=== PATIENT | male | born 1980 | race Asian ===

== ENCOUNTER 2018-10-09 12:39 | Emergency (ER) | payer SELFPAY ==
[~2018-10-09] VITALS: Ht 175.3 cm; Wt 90.7 kg
[2018-10-09 12:44] VITALS: Ht 175.3 cm; Wt 90.7 kg
--- NOTE | 2018-10-09 12:51 | NUR ---
AMBULATORY TO BED 9. PT C/O R ARM PAIN X3 DAYS.
[2018-10-09 13:22] LABS: BASOPHIL % 0.7 % (0-2); PLATELET COUNT 256 x10^3mcL (130-400); RED CELL DISTRIBUTION WIDTH 12.7 % (11.5-14.5)
[2018-10-09 13:35] LABS: CALCIUM 9.3 mg/dL (8.5-10.1); CHLORIDE SERUM 108 mmol/L (98-107); CREATININE SERUM 0.7 mg/dL (0.7-1.3); GFR1 > 60 mL/min; GLUCOSE SERUM 137 mg/dL (74-106); POTASSIUM SERUM 3.8 mmol/L (3.5-5.1); SODIUM SERUM 142 mmol/L (136-145)
[2018-10-09 13:40] LABS: ALBUMIN 4.1 g/dL (3.4-5.0); ALKALINE PHOSPHATASE 51 U/L (46-116); ALT/SGPT 57 U/L (16-63); AST/SGOT 19 U/L (15-37); BILIRUBIN TOTAL 0.8 mg/dL (0.20-1.00); TOTAL PROTEIN, SERUM 7.4 g/dL (6.4-8.2)
--- NOTE | 2018-10-09 14:30 | NUR ---
SITTING IN BED, AWAKE, ALERT, NO SIGNS OF ALLERGIC REACTION FROM IV ANTIBIOTIC.
[2018-10-09 14:34] LABS: microscopic required? NO
[2018-10-09 14:47] LABS: UA SPECIFIC GRAVITY 1.025 (1.005-1.035); urine erythrocyte NEGATIVE (NEGATIVE)
--- NOTE | 2018-10-09 15:15 | NUR ---
PT ADMITTED TO [facility], PT INFORMED AND PER FRIEND AT BEDSIDE, [employer] SALES SUPERVISOR, PT UNABLE TO STAY, LEAVING FOR [place] IN THE MORNING, THAT THEY ARE HERE FOR A BUSSINESS TRIP.
--- NOTE | 2018-10-09 15:25 | NUR ---
PT VERBALIZED PER [facility] UNIT COORDINATOR @ BEDSIDE THAT HE CAN NOT STAY IN THE HOSPITAL BECAUSE HE IS LEAVING FOR [place] TOMORROW. MD BRAUN AWARE.
[2018-10-09 15:38] VITALS: BP 128/79
[2018-10-09 15:54] LABS: MAGNESIUM 2.2 mg/dL (1.8-2.4); PHOSPHOROUS 3.6 mg/dL (2.5-4.9)
== END 2018-10-09 15:39 | disposition left against medical advice (07) ==
LOC: ED 12:39 → MU 15:16 → ED 15:39
PROVIDERS: Emergency Medicine; General Practice
DX: L03.113 Cellulitis of right upper limb (principal); I10 Essential (primary) hypertension; E11.9 Type 2 diabetes mellitus without complications
CPT/HCPCS: J0696; J7030; Q0092